=== PATIENT | male | born 1955 | race Caucasian/White ===

== ENCOUNTER 2016-06-11 10:24 | Day surgery (SDC) | payer BC, OTHER ==
[2016-06-07 07:51] VITALS: BMI 27.0
[2016-06-11] MEDS ORDERED: PROPOFOL 20 ML ONE (10:28)
[2016-06-11 12:51] VITALS: TEMP 98
[2016-06-11 12:56] VITALS: BP 144/85; PULSE 88
--- NOTE | 2016-06-12 15:57 | PATH ---
Surgical Pathology Report Patient Name: NIKKI MORTENSEN [facility]. Rec. #: [id number] /Age/Gender: 1955 (Age: 60) / M Account: [id number] Location: [facility]-ENDOSCOPY Taken: 06/11/2016 Received: 06/11/2016 Reported: 06/12/2016 Physicians: Harrison Pacheco M.D. Specimen(s) Received A: BX DUODENUM B: BX ANTRUM C: BX ESOPHAGUS Clinical History GERD GI bleed Rule out celiac disease, gastritis, rule out Hamilton's Final Diagnosis A. DUODENUM, BIOPSY: DUODENAL MUCOSA WITH NO PATHOLOGIC FINDINGS. Note: Features suggestive of celiac disease are not identified in this biopsy. B. ANTRUM, BIOPSY: MILD CHRONIC GASTRITIS. IMMUNOSTAIN IS NEGATIVE FOR H. PYLORI ORGANISMS. C. ESOPHAGUS, BIOPSY: SQUAMOUS (ESOPHAGEAL) MUCOSA WITH NO SIGNIFICANT PATHOLOGIC FINDINGS. NO COLUMNAR EPITHELIUM/INTESTINAL METAPLASIA IS IDENTIFIED. Electronically Signed Ana Piper M.D. Gross Description A. Received in formalin, labeled "duodenum" are 2 kelly, irregular portions of soft tissue averaging 0.4 cm. in greatest dimension. The specimens are submitted in toto in one cassette. B. Received in formalin, labeled "antrum" are 2 kelly, irregular portions of soft tissue measuring 0.4 and 0.5 cm. in greatest dimension. The specimens are submitted in toto in one cassette. C. Received in formalin, labeled "esophagus" is a kelly, irregular portion of soft tissue measuring 0.6 cm. in greatest dimension. The specimen is submitted in toto in one cassette. 06/11/201606/11/2016
== END 2016-06-11 12:47 | disposition home or self-care (01) ==
LOC: FASU-ENDO 10:24
PROVIDERS: ATTEND Internal Medicine Gastroenterology
PROC: 0DB68ZX Excision of Stomach, Via Natural or Artificial Opening Endoscopic, Diagnostic (ICD-10-PCS; 2016-06-11)
PROC: 0DB48ZX Excision of Esophagogastric Junction, Via Natural or Artificial Opening Endoscopic, Diagnostic (ICD-10-PCS; 2016-06-11)
PROC: 0DJD8ZZ Inspection of Lower Intestinal Tract, Via Natural or Artificial Opening Endoscopic (ICD-10-PCS; principal; 2016-06-11 11:16)
PROC: 0DB98ZX Excision of Duodenum, Via Natural or Artificial Opening Endoscopic, Diagnostic (ICD-10-PCS; 2016-06-11 11:16)
DX: Z12.11 Encounter for screening for malignant neoplasm of colon (principal); K57.30 Diverticulosis of large intestine without perforation or abscess without bleeding; K20.9 Esophagitis, unspecified; K29.50 Unspecified chronic gastritis without bleeding
CPT/HCPCS: 88305-TC; 88342-TC

== ENCOUNTER 2017-01-23 18:06 | Emergency (ER) | payer BC, OTHER ==
--- NOTE | 2017-01-23 18:18 | PDOC ---
History of Present Illness - General Chief Complaint: Blurry Vision Stated Complaint: BLURRY VISION SENT FROM URGENT CARE Time Seen by Provider: 01/23/17 18:15 Past History - Past Medical History Allergies/Adverse Reactions: Allergies Allergy/AdvReac Type Severity Reaction Status Date / Time carrot Allergy Severe Swelling Verified 06/11/16 10:34 No Known Drug Allergies Allergy Verified 06/11/16 10:34 Home Medications: Ambulatory Orders Diclofenac Submicronized [Zorvolex] 35 mg PO DAILY 05/14/16 Rosuvastatin [Crestor -] 5 mg PO HS 05/14/16 Amlodipine Besylate/Benazepril [Lotrel 2.5-10 mg Capsule] 1 cap PO DAILY Anemia: No Asthma: No Cancer: Yes (PROSTATE 2009) Cardiac Disorders: No CVA: No COPD: No CHF: No Dementia: No Diabetes: No GI Disorders: Yes (GERD,DIVERTICULITIS) Disorders: No HTN: Yes Hypercholesterolemia: Yes Seizures: No Thyroid Disease: No - Surgical History Abdominal Surgery: No Appendectomy: No Cardiac Surgery: No Cholecystectomy: No Lung Surgery: No Neurologic Surgery: No Orthopedic Surgery: No - Suicide/Smoking/Psychosocial Hx Smoking History: Never smoked Have you smoked in the past 12 months: No Hx Alcohol Use: Yes (SOCIALLY) Drug/Substance Use Hx: No Substance Use Type: Alcohol Hx Substance Use Treatment: No *DC/Admit/Observation/Transfer - Discharge Dispostion Condition at time of disposition: Fair - Referrals - Patient Instructions - Post Discharge Activity
[2017-01-23 18:30] VITALS: TEMP 98.2; BMI 27.6
[2017-01-23 18:59] LABS: BASOPHIL 0.5 % (0-2.0); EOSINOPHIL 1.9 % (0-4.5); MCH 29.1 pg (25.7-33.7); MCHC 32.7 g/dl (32.0-35.9); MEAN CELL VOLUME 88.8 fl (80-96); MEAN PLT VOLUME 8.9 fl (7.5-11.1); NEUTROPHILS 68.8 % (42.8-82.8); PLATELET COUNT 236 K/MM3 (134-434); RDW 13.2 % (11.9-15.9); WHITE BLOOD COUNT 6.4 K/mm3 (4.0-10.8)
[2017-01-23 19:06] LABS: INR 1.05 (0.82-1.09); PROTHROMBIN TIME (PATIENT) 11.7 SEC (10.2-13.0)
[2017-01-23 19:35] LABS: ALBUMIN 3.8 g/dl (3.5-5.0); ALK PHOS 49 U/L (32-92); ANION GAP 8 (8-16); BILIRUBIN,TOTAL 0.5 mg/dl (0.2-1.0); CALCIUM 8.9 mg/dl (8.4-10.2); CO2 25 mmol/L (22-28); CPK 969 IU/L (39-308); GLUCOSE,RANDOM 82 mg/dl (74-106); SGOT/AST 41 U/L (10-42); SGPT/ALT 46 U/L (10-40)
[2017-01-23 19:36] LABS: TROPONIN I (DFP) < 0.03 ng/ml (0.03-0.50)
--- NOTE | 2017-01-23 19:40 | PDOC ---
History of Present Illness - General Chief Complaint: Blurry Vision Stated Complaint: BLURRY VISION SENT FROM URGENT CARE Time Seen by Provider: 01/23/17 18:15 - History of Present Illness Initial Comments: 01/23/17 19:41 "The patient is a 61 year old male presenting with his , with a significant past medical history of Prostate CA (2009), HTN, HLD, GERD, and diverticulitis, who is sent to ER from urgent care for abnormal EKG and elevated BP. Pt initially went to urgent care for complaint of blurred vision x 2 weeks. At urgent care, his BP was found to be elevated to 190 systolic. They performed an EKG, which they found to be abnormal, and pt was then advised to come to the ED for further evaluation. Pt denies any chest pain or shortness of breath at any time. Denies leg swelling. Denies FH of NM. Pt states that he has known EKG abnormalities that were found by his PMD 2 months ago, though he does not know exactly what abnormalities they were. He also notes that he had a stress test done at that time that was normal. In terms of his blurred vision, pt states that his left eye is primarily bothering him. He denies any pain. Denies double vision. He states that he did initially see some floaters at onset of blurred vision, which has been constant and has not waxed or waned. The patient denies chest pain, shortness of breath, headache and dizziness. Denies fever, chills, nausea, vomit, diarrhea and constipation. Denies dysuria, frequency, urgency and hematuria. Allergies: Carrots Past surgical history: Lasik eye surgery Social history: Social alcohol use. No tobacco or drug use reported " Past History - Past Medical History Allergies/Adverse Reactions: Allergies Allergy/AdvReac Type Severity Reaction Status Date / Time carrot Allergy Severe Swelling Verified 06/11/16 10:34 No Known Drug Allergies Allergy Verified 06/11/16 10:34 Home Medications: Ambulatory Orders Rosuvastatin [Crestor -] 5 mg PO HS 05/14/16 Amlodipine Besylate/Benazepril [Lotrel 2.5-10 mg Capsule] 1 cap PO DAILY Pantoprazole Sodium 1 tab PO DAILY 01/23/17 Anemia: No Asthma: No Cancer: Yes (PROSTATE 2009) Cardiac Disorders: No CVA: No COPD: No CHF: No DVT: No Dementia: No Diabetes: No GI Disorders: Yes (GERD,DIVERTICULITIS) Disorders: No HTN: Yes Hypercholesterolemia: Yes Seizures: No Thyroid Disease: No - Surgical History Abdominal Surgery: No Appendectomy: No Cardiac Surgery: No Cholecystectomy: No Lung Surgery: No Neurologic Surgery: No Orthopedic Surgery: No - Suicide/Smoking/Psychosocial Hx Smoking History: Never smoked Have you smoked in the past 12 months: No Information on smoking cessation initiated: No Hx Alcohol Use: Yes (SOCIAL) Drug/Substance Use Hx: No Substance Use Type: Alcohol Hx Substance Use Treatment: No Review of Systems - Review of Systems Comments:: 01/23/17 19:45 "GENERAL/CONSTITUTIONAL: No fever or chills. No weakness. HEAD, EYES, EARS, NOSE AND THROAT: (+) Blurry vision. No ear pain or discharge. No sore throat. CARDIOVASCULAR: No chest pain or shortness of breath. RESPIRATORY: No cough, wheezing, or hemoptysis. GASTROINTESTINAL: No nausea, vomiting, diarrhea or constipation. GENITOURINARY: No dysuria, frequency, or change in urination. MUSCULOSKELETAL: No joint or muscle swelling or pain. No neck or back pain. SKIN: No rash NEUROLOGIC: No headache, vertigo, loss of consciousness, or change in strength/ sensation. ENDOCRINE: No increased thirst. No abnormal weight change. HEMATOLOGIC/LYMPHATIC: No anemia, easy bleeding, or history of blood clots. ALLERGIC/IMMUNOLOGIC: No hives or skin allergy." *Physical Exam - Vital Signs Last Vital Signs Temp Pulse Resp BP Pulse Ox 98.2 F 77 18 165/82 100 01/23/17 18:09 01/23/17 18:09 01/23/17 18:09 01/23/17 18:09 01/23/17 18:09 - Physical Exam Comments: 01/23/17 19:45 "GENERAL: Awake, alert, and fully oriented, in no acute distress HEAD: No signs of trauma EYES: PERRLA, EOMI, sclera anicteric, conjunctiva clear. Visual acuity: OD 20/20 , OS 20/50. without corrective lenses. No papilledema, no vitreous hemorrhage, no zacarias red macula, no hazy cornea, no temporal artery tenderness ENT: Auricles normal inspection, hearing grossly normal, nares patent, oropharynx clear without exudates. Moist mucosa NECK: Nontender, no stepoffs, Normal ROM, supple, no lymphadenopathy, JVD, or masses LUNGS: Breath sounds equal, clear to auscultation bilaterally. No wheezes, and no crackles HEART: Regular rate and rhythm, normal S1 and S2, no murmurs, rubs or gallops ABDOMEN: Soft, nontender, normoactive bowel sounds. No guarding, no rebound. No masses EXTREMITIES: Normal range of motion, no edema. No clubbing or cyanosis. No cords, erythema, or tenderness NEUROLOGICAL: Cranial nerves II through XII intact. 5/5 strength and sensation in all extremities, Normal speech, normal gait SKIN: Warm, Dry, normal turgor, no rashes or lesions noted. " Heart Score/ECG Review - History History: Slightly suspicious - Electrocardiogram EKG: Non specific repolarization disturbance - Age Age: 45-65 - Risk Factors Risk Factors Heart Score: Yes Hx Hypercholesterolemia, Yes Hx Hypertension Based on the list above the patient has:: 1-2 risk factors - Troponin Troponin: </= normal limit - Score Heart Score - Total: 3 - ECG Impressions Comment:: 01/23/17 19:28 NSR, no ИВАН/STDs, TWI in inferolateral leads, not seen on prior EKG from 2007, intervals wnl, axis wnl ED Treatment Course - LABORATORY CBC & Chemistry Diagram: 01/23/17 18:45 01/23/17 18:45 - ADDITIONAL ORDERS Additional order review: Laboratory Results 01/23/17 18:45 PT with INR 11.7 INR 1.05 01/23/17 18:45 RBC 5.51 MCV 88.8 MCHC 32.7 RDW 13.2 MPV 8.9 Neutrophils % 68.8 Lymphocytes % 20.4 Monocytes % 8.4 D Eosinophils % 1.9 Basophils % 0.5 Medical Decision Making - Medical Decision Making 01/23/17 19:29 61 M with HTN sent from urgent care for HTN and abnormal EKG. Pt with no chest pain or shortness of breath. These EKG changes are likely not acute, especially given that pt was told he had "abnormal" EKG by his PMD 2 months ago and had normal stress test at the time. However, will r/o ischemia with serial troponins. In terms of pt's HTN, it has now normalized to pt's baseline without intervention. Will continue to monitor BP in ER. Pt also complaining of 2 weeks of blurred vision, found to have decreased visual acuity in L eye only. Pt with otherwise non-focal neuro exam, making central process unlikely. Possible retinal detachment as pt reports seeing floaters. Will refer to outpt ophtho. - Labs, serial trops 01/23/17 23:00 Trop negative x2 Pt reassessed - continues to feel well with no chest pain/SOB. Vitals wnl. Pt clinically stable for DC. I discussed the physical exam findings, ancillary test results and final diagnoses with the patient. I answered all of the patient's questions. The patient was satisfied with the care received and felt comfortable with the discharge plan and treatment plan. The patient agrees to follow up with the primary care physician within 24-72 hours. *DC/Admit/Observation/Transfer Diagnosis at time of Disposition: Abnormal EKG - Discharge Dispostion Disposition: HOME Condition at time of disposition: Fair - Referrals Referrals: Bennie Irvin MD [Staff Physician] - - Patient Instructions Printed Discharge Instructions: DI for Visual Field Disturbances Additional Instructions: Follow up with your primary doctor as soon as possible regarding your blood pressure medications and your abnormal EKG. You may need a repeat stress test to evaluate for heart problems. Call the number provided to make an appointment with an counting machine operator within 1 week for further evaluation of your blurred vision. If you experience worsening blurred vision, headaches, dizziness, chest pain, shortness of breath, or any other concerning symptoms, return to the ER immediately. - Post Discharge Activity - Attestations Physician Attestion: 01/23/17 23:04 I, Dr. Guru Troncoso MD, attest that this document has been prepared under my direction and personally reviewed by me in its entirety. I further attest, that it accurately reflects all work, treatment, procedures and medical decision -making performed by me.
[2017-01-23 21:34] VITALS: BP 140/74; PULSE 64
[2017-01-23 22:38] LABS: CPK 819 IU/L (39-308)
[2017-01-23 22:53] LABS: TROPONIN I (DFP) < 0.03 ng/ml (0.03-0.50)
--- NOTE | 2017-01-24 22:23 | EKG ---
Test Reason : Blood Pressure : / mmHG Vent. Rate : 073 BPM Atrial Rate : 073 BPM P-R Int : 142 ms QRS Dur : 114 ms QT Int : 364 ms P-R-T Axes : 051 006 -30 degrees QTc Int : 401 ms NORMAL SINUS RHYTHM VOLTAGE CRITERIA FOR LEFT VENTRICULAR HYPERTROPHY WITH QRS WIDENING AND REPOLARIZATION ABNORMALITY T WAVE ABNORMALITY, CONSIDER INFEROLATERAL ISCHEMIA ABNORMAL ECG NO PREVIOUS ECGS AVAILABLE Confirmed by ALEX KOWALSKI MD ([id number]) on 01/24/2017 10:22:53 PM Referred By: MD ADAMS Confirmed By:ALEX KOWALSKI MD
== END 2017-01-23 23:16 | disposition home or self-care (01) ==
LOC: FER 18:06
DX: R94.31 Abnormal electrocardiogram [ECG] [EKG] (principal); R78.5 Finding of other psychotropic drug in blood; K21.9 Gastro-esophageal reflux disease without esophagitis; I10 Essential (primary) hypertension; Z85.46 Personal history of malignant neoplasm of prostate
CPT/HCPCS: 36415; 71010-TC; 80053; 82550; 82553; 84484; 85025; 85610; 93005; 99285-25

== ENCOUNTER 2020-10-31 06:56 | Day surgery (SDC) | payer BC ==
[2020-10-26 12:00] VITALS: BMI 29.5
[2020-10-31] MEDS ORDERED: CYCLOPENTOLATE 2% OPHTH SOLN 2 ML BOTTLE ONE (07:02)
[2020-10-31] MEDS ORDERED: PHENYLEPHRINE 2.5% OPHTH SOLN 15 ML BOTTLE ONE (07:02)
[2020-10-31] MEDS ORDERED: CIPROFLOXACIN 0.3% EYE DROPS 5 ML BOTTLE ONE (07:02)
[2020-10-31] MEDS ORDERED: TROPICAMIDE 1% OPHTH SOLN 15 ML BOTTLE ONE (07:03)
[2020-10-31] MEDS ORDERED: LIDOCAINE 1% P/F 10 MG/ML VIAL ONE (07:07)
[2020-10-31] MEDS ORDERED: EPINEPHrine/PF 1 MG/1 ML (1:1,000) AMPULE ONE (07:07)
[2020-10-31] MEDS ORDERED: TETRACAINE 0.5% OPHTH SOLN 2 ML BOTTLE ONE (07:07)
[2020-10-31] MEDS ORDERED: CARBACHOL 0.01% INTRA-OCULAR 1.5 ML VIAL ONE (07:08)
[2020-10-31] MEDS ORDERED: NEO/POLYMYX B SULF/DEXAMETH OPHTHALMIC 5ML BOTTLE ONE (07:08)
[2020-10-31] MEDS ORDERED: BSS (NA/CA/MG/K) BALANCED SALT SOLUTION OPHTH SOLN 15 ML BOTTLE ONE (07:08)
[2020-10-31] MEDS ORDERED: PROPOFOL 20 ML ONE (07:10)
[2020-10-31] MEDS ORDERED: MIDAZOLAM HCL 2 MG/2 ML SINGLE DOSE VIAL ONE (07:12)
[2020-10-31 08:52] VITALS: TEMP 98.7
[2020-10-31 09:13] VITALS: BP 132/65; PULSE 65
== END 2020-10-31 09:15 | disposition home or self-care (01) ==
LOC: FASU 06:56
PROVIDERS: ATTEND Ophthalmology
PROC: 08RJ3JZ Replacement of Right Lens with Synthetic Substitute, Percutaneous Approach (ICD-10-PCS; principal; 2020-10-31 08:16)
DX: H26.8 Other specified cataract (principal)

== ENCOUNTER 2021-01-04 06:28 | Day surgery (SDC) | payer BC ==
[2020-12-29 09:38] VITALS: BMI 29.5
[2021-01-04] MEDS: CIPROFLOXACIN 0.3% EYE DROPS 5 ML BOTTLE ONE ×3 (07:00→07:10)
[2021-01-04] MEDS: PHENYLEPHRINE 2.5% OPHTH SOLN 15 ML BOTTLE ONE ×3 (07:00→07:10)
[2021-01-04] MEDS: CYCLOPENTOLATE 2% OPHTH SOLN 2 ML BOTTLE ONE ×3 (07:00→07:10)
[2021-01-04] MEDS: TROPICAMIDE 1% OPHTH SOLN 15 ML BOTTLE ONE ×3 (07:00→07:10)
[2021-01-04 07:09] VITALS: TEMP 98.1
[2021-01-04] MEDS ORDERED: LIDOCAINE 1% P/F 10 MG/ML VIAL ONE (07:20)
[2021-01-04] MEDS ORDERED: EPINEPHrine/PF 1 MG/1 ML (1:1,000) AMPULE ONE (07:20)
[2021-01-04] MEDS ORDERED: BSS (NA/CA/MG/K) BALANCED SALT SOLUTION OPHTH SOLN 15 ML BOTTLE ONE (07:21)
[2021-01-04] MEDS ORDERED: TETRACAINE 0.5% OPHTH SOLN 2 ML BOTTLE ONE (07:21)
[2021-01-04] MEDS ORDERED: CARBACHOL 0.01% INTRA-OCULAR 1.5 ML VIAL ONE (07:21)
[2021-01-04] MEDS ORDERED: NEO/POLYMYX B SULF/DEXAMETH OPHTHALMIC 5ML BOTTLE ONE (07:22)
[2021-01-04] MEDS ORDERED: MIDAZOLAM HCL 2 MG/2 ML SINGLE DOSE VIAL ONE (07:47)
[2021-01-04 09:04] VITALS: BP 125/60; PULSE 80
== END 2021-01-04 09:00 | disposition home or self-care (01) ==
LOC: FASU 06:28
PROVIDERS: ATTEND Ophthalmology
PROC: 08RK3JZ Replacement of Left Lens with Synthetic Substitute, Percutaneous Approach (ICD-10-PCS; principal; 2021-01-04 08:20)
DX: H26.8 Other specified cataract (principal)

== ENCOUNTER 2021-09-23 17:23 | Emergency (ER) | payer OTHER, BC ==
[2021-09-23 17:43] VITALS: BP 133/73; PULSE 65; RESP 16; TEMP 98.1; BMI 29.5
[2021-09-23] MEDS ORDERED: SODIUM CHLORIDE 1,000 ML IV STA (18:02)
[2021-09-23] MEDS ORDERED: PANTOPRAZOLE SODIUM 40 MG in SODIUM CHLORIDE 100 ML IVPB ONE (18:02)
[2021-09-23 18:07] LABS: EPITHELIAL CELLS RARE /hpf
[2021-09-23] MEDS ORDERED: PANTOPRAZOLE SODIUM 40 MG VIAL ONE (18:14)
[2021-09-23 18:31] LABS: HEMATOCRIT 35.3 % (35.4-49); HEMOGLOBIN 12.2 G/dL (11.7-16.9); MCH 29.7 pg (25.7-33.7); MCHC 34.5 g/dl (32.0-35.9); MEAN CELL VOLUME 86.2 fl (80-96); MEAN PLT VOLUME 8.5 fl (7.5-11.1); PLATELET COUNT 296.2 10^3/uL (134-434); RDW 15.6 % (11.9-15.9); WHITE BLOOD COUNT 7.6 10^3/uL (4.0-10.8)
[2021-09-23 18:32] LABS: INR 1.09 (0.83-1.09); PROTHROMBIN TIME (PATIENT) 12.5 SEC (9.7-13.0)
[2021-09-23 18:38] LABS: ALBUMIN 3.2 g/dl (3.4-5.0); BILIRUBIN,TOTAL 0.5 mg/dl (0.2-1); CREATININE 1.2 mg/dl (0.55-1.3); TOT PROT 6.4 g/dl (6.4-8.2)
== END 2021-09-23 19:24 | disposition home or self-care (01) ==
LOC: FER 17:23
PROC: 3E033NZ Introduction of Analgesics, Hypnotics, Sedatives into Peripheral Vein, Percutaneous Approach (ICD-10-PCS; principal; 2021-09-23)
PROC: 3E0337Z Introduction of Electrolytic and Water Balance Substance into Peripheral Vein, Percutaneous Approach (ICD-10-PCS; 2021-09-23)
DX: K52.9 Noninfective gastroenteritis and colitis, unspecified (principal)
CPT/HCPCS: 36415; 80053; 81003; 81015; 82272; 85027; 85610; 87086; 93005; 99284-25

== ENCOUNTER 2022-01-12 07:02 | Emergency (ER) | payer OTHER, BC ==
[2022-01-12 07:17] VITALS: BP 121/73; PULSE 72; RESP 16; TEMP 99.2; BMI 30.8
[2022-01-12 08:05] LABS: INR 1.06 (0.83-1.09); PROTHROMBIN TIME (PATIENT) 12.2 SEC (9.7-13.0)
[2022-01-12 08:08] LABS: ACTIVATED PTT 41.7 SECONDS (25.2-36.5)
[2022-01-12 08:11] LABS: ALBUMIN 3.4 g/dl (3.4-5.0); BILIRUBIN,TOTAL 0.6 mg/dl (0.2-1); TOT PROT 6.4 g/dl (6.4-8.2)
[2022-01-12 08:12] LABS: HEMOGLOBIN 14.3 G/dL (11.7-16.9); MCHC 33.2 g/dl (32.0-35.9); MEAN CELL VOLUME 81.3 fl (80-96); MEAN PLT VOLUME 9.6 fl (7.5-11.1); PLATELET COUNT 269.4 10^3/uL (134-434); RBC 5.29 10^6/uL (4.00-5.60); RDW 18.9 % (11.9-15.9); WHITE BLOOD COUNT 9.4 10^3/uL (4.0-10.8)
[2022-01-12 09:25] LABS: ADD RBC MORPHOLOGY YES; PLATELET ESTIMATE ADEQUATE
[2022-01-12 09:27] LABS: ANISOCYTOSIS 1+
== END 2022-01-12 12:47 | disposition home or self-care (01) ==
LOC: FER 07:02
DX: K62.5 Hemorrhage of anus and rectum (principal)
CPT/HCPCS: 36415; 74174-TC; 80053; 81003; 85025; 85610; 85730; 86850; 86900; 86901; 87086; 99284-25

== ENCOUNTER 2022-04-11 18:26 | Emergency (ER) | payer OTHER, BC ==
[2022-04-11 18:37] VITALS: BMI 30.2
[2022-04-11 19:29] LABS: HEMATOCRIT 34.8 % (35.4-49); HEMOGLOBIN 11.8 G/dL (11.7-16.9); MCH 27.7 pg (25.7-33.7); MCHC 33.9 g/dl (32.0-35.9); MEAN CELL VOLUME 81.8 fl (80-96); MEAN PLT VOLUME 8.8 fl (7.5-11.1); PLATELET COUNT 268.2 10^3/uL (134-434); RBC 4.26 10^6/uL (4.00-5.60); RDW 15.2 % (11.9-15.9); WHITE BLOOD COUNT 10.6 10^3/uL (4.0-10.8)
[2022-04-11 19:29] LABS: INR 1.14 (0.83-1.09); PROTHROMBIN TIME (PATIENT) 13.1 SEC (9.7-13.0)
[2022-04-11 19:31] LABS: ACTIVATED PTT 37.2 SECONDS (25.2-36.5)
[2022-04-11] MEDS ORDERED: SODIUM CHLORIDE 1,000 ML IV SCH ×3 (19:45→23:15)
[2022-04-11 19:58] LABS: BILIRUBIN,TOTAL 0.4 mg/dl (0.2-1); CALCIUM 8.5 mg/dl (8.5-10); CREATININE 1.3 mg/dl (0.55-1.3); TOT PROT 5.6 g/dl (6.4-8.2)
[2022-04-11 20:11] LABS: PLATELET ESTIMATE ADEQUATE
[2022-04-11] MEDS ORDERED: SODIUM CHLORIDE 1,000 ML IV ONE ×2 (21:06→22:07)
[2022-04-11 22:00] LABS: HEMATOCRIT 30.3 % (35.4-49); HEMOGLOBIN 10.1 G/dL (11.7-16.9); MCH 27.4 pg (25.7-33.7); MCHC 33.3 g/dl (32.0-35.9); MEAN CELL VOLUME 82.4 fl (80-96); MEAN PLT VOLUME 8.3 fl (7.5-11.1); PLATELET COUNT 270.4 10^3/uL (134-434); RBC 3.68 10^6/uL (4.00-5.60); RDW 15.5 % (11.9-15.9); WHITE BLOOD COUNT 11.7 10^3/uL (4.0-10.8)
[2022-04-11 22:11] VITALS: RESP 16
[2022-04-11 23:30] VITALS: BP 123/72; PULSE 74; TEMP 98
== END 2022-04-12 00:08 | disposition short-term general hospital (02) ==
LOC: FER 18:26
PROC: 3E0337Z Introduction of Electrolytic and Water Balance Substance into Peripheral Vein, Percutaneous Approach (ICD-10-PCS; principal; 2022-04-11)
PROC: 3E0337Z Introduction of Electrolytic and Water Balance Substance into Peripheral Vein, Percutaneous Approach (ICD-10-PCS; 2022-04-11)
DX: K62.5 Hemorrhage of anus and rectum (principal)
CPT/HCPCS: 0241U-QW; 36415; 36430; 71045-TC-FY; 80053; 83690; 84484; 85027; 85610; 85730; 86850; 86900; 86901; 86922; 93005; 99285-25; P9058